=== PATIENT | male | born 1985 | race African-American/Black ===

== ENCOUNTER 2018-05-01 23:45 | Emergency (ER) | payer OTHER ==
--- NOTE | 2018-05-01 23:54 | PDOC ---
Attending Attestation - HPI HPI: 05/02/18 00:31 The patient is a 32 year old male, with a significant past medical history of anxiety, vertigo, and CVA (4 yrs ago), who presents to the emergency department via EMS with, seizure-like activity and headache. As per patient, he has had a headache all day long with increased dizziness. He called his aunt who witnessed him dropping his car keys then convulsing with his tongue out. The patient has not slept in 3 days due to increased familial stress. He has taken 6 of 25 mg Meclizine over the course of 12 hours for his dizziness today. It is unknown if he had any loss of consciousness. He denies any recent fevers or chills. He denies any recent nausea, vomit, diarrhea or constipation. He denies any recent chest pain or shortness of breath. He denies any recent dysuria, frequency, urgency or hematuria. Past surgical history: None reported. Social History: Occasional smoker. Denies EtOH use and recreational drug use. - Physicial Exam PE: 05/02/18 00:48 GENERAL: The patient is in no acute distress. HEAD: Normal with no signs of trauma. EYES: PERRLA, EOMI, sclera anicteric, conjunctiva clear. ENT: Ears normal, nares patent, oropharynx clear without exudates. Moist mucous membranes. NECK: Normal range of motion, supple without lymphadenopathy, JVD, or masses. LUNGS: Breath sounds equal, clear to auscultation bilaterally. No wheezes, and no crackles. HEART:Regular rate and rhythm, normal S1 and S2 without murmur, rub or gallop. ABDOMEN: Soft, nontender, normoactive bowel sounds. No guarding, no rebound. No masses palpable. EXTREMITIES: Normal range of motion, no edema. No clubbing or cyanosis. No erythema, or tenderness. NEUROLOGICAL: Cranial nerves II through XII grossly intact. Normal speech. No focal neurological deficits. MUSCULOSKELETAL: Back non-tender to palpation, no CVA tenderness SKIN: Warm, Dry, normal turgor, no rashes or lesions noted. <Reg Parra - Last Filed: 05/02/18 00:48> - Resident Resident Name: Maxwell Bustillos - ED Attending Attestation I have performed the following: I have examined & evaluated the patient, The case was reviewed & discussed with the resident, I agree w/resident's findings & plan, Exceptions are as noted - Medical Decision Making 05/02/18 01:03 EKG: NRS rate 96 bpm, axis nml, intervals nml, no st elevations or depression 05/02/18 01:20 Laboratory Tests 05/02/18 05/02/18 05/02/18 00:00 00:00 00:05 WBC 5.0 Hgb 14.4 Hct 43.7 Plt Count 257 Neutrophils % 42.6 L Lymphocytes % 42.5 H BUN 20 H Creatinine 1.3 Phencyclidine Screen Positive Upon my assessment, pt is awake and alert Oriented He states he took 6 x 25mg Meclizine tablets over 12 hours for vertigo Pt has not slept much in the past 3 days, in an effort to protect his father Apparently pt was in a car today, dropped a phone western felt hat blocker and was noted to have seizure like activity No bowel or bladder incontinence No post ictal period No prior history of seizure Upon arrival to the ER he was persistently speaking about his father and needing to get back to help his father 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 Will discharge to home Will ask pt to follow up with Neurology Return to the ER for any other concerns or complaints <Jayna Claudio - Last Filed: 05/02/18 01:49> Attestations - Attestations 05/02/18 00:31 Documentation prepared by Reg Parra, acting as medical liaison for Jayna Claudio MD. <Reg Parra - Last Filed: 05/02/18 00:48>
--- NOTE | 2018-05-02 00:20 | PDOC ---
History of Present Illness - General Stated Complaint: SEIZURE/AMS Time Seen by Provider: 05/01/18 23:53 - History of Present Illness Initial Comments: 05/02/18 00:14 Mr. Lee is a 32 yo male w/ pmh of vertigo and CVA 4 years ago (now residual deficits) BIBA who presents for evaluation of altered mental status. Per aunt who is with him he called her over to father's house (patient is visiting from [place]) when patient started experiencing significant headache and dizziness. Patient reports taking 6 meclizine (25mg, over 12 hours) for his dizziness. Patient proceeded to have a generalized tonic clonic episode after which he has been confused. Patient also reports he has not slept in 3 days as he is very concerned for his father and has been going through a lot of family issues. The patient denies chest pain and shortness of breath. Denies fever, chills, nausea, vomit, diarrhea and constipation. Denies dysuria, frequency, urgency and hematuria. Allergies: NKDA Past History - Past Medical History Allergies/Adverse Reactions: Allergies Allergy/AdvReac Type Severity Reaction Status Date / Time No Known Allergies Allergy Verified 05/02/18 00:49 Review of Systems - Review of Systems Comments:: 05/02/18 00:24 GENERAL/CONSTITUTIONAL: No fever or chills. No weakness. HEAD, EYES, EARS, NOSE AND THROAT: No change in vision. No ear pain or discharge. No sore throat. CARDIOVASCULAR: No chest pain or shortness of breath RESPIRATORY: No cough, wheezing, or hemoptysis. GASTROINTESTINAL: No nausea, vomiting, diarrhea or constipation. GENITOURINARY: No dysuria, frequency, or change in urination. MUSCULOSKELETAL: No joint or muscle swelling or pain. No neck or back pain. SKIN: No rash NEUROLOGIC: +Dizziness and headache as described with single tonic clonic episode earlier ENDOCRINE: No increased thirst. No abnormal weight change HEMATOLOGIC/LYMPHATIC: No anemia, easy bleeding, or history of blood clots. ALLERGIC/IMMUNOLOGIC: No hives or skin allergy. *Physical Exam - Physical Exam Comments: 05/02/18 00:24 GENERAL: Awake, alert, and fully oriented, in no acute distress HEAD: No signs of trauma, normocephalic, atraumatic EYES: PERRLA, EOMI, sclera anicteric, conjunctiva clear ENT: Auricles normal inspection, hearing grossly normal, nares patent, oropharynx clear without exudates. Moist mucosa NECK: Normal ROM, supple, no lymphadenopathy, JVD, or masses LUNGS: No distress, speaks full sentences, clear to auscultation bilaterally HEART: Regular rate and rhythm, normal S1 and S2, no murmurs, rubs or gallops, peripheral pulses normal and equal bilaterally. ABDOMEN: Soft, nontender, normoactive bowel sounds. No guarding, no rebound. No masses EXTREMITIES: Normal inspection, Normal range of motion, no edema. No clubbing or cyanosis. NEUROLOGICAL: Cranial nerves II through XII grossly intact. Normal speech, normal gait, no focal sensorimotor deficits SKIN: Warm, Dry, normal turgor, no rashes or lesions noted. ED Treatment Course - LABORATORY CBC & Chemistry Diagram: 05/02/18 00:00 05/02/18 00:00 Medical Decision Making - Medical Decision Making 05/02/18 00:48 Mr. Lee is a 32 yo male w/ pmh as described who presents for evaluation of ams / seizure as described. [place] Poison control contacted re: patient's ingestion of 6 meclizine; related that care is supportive only and there is nothing to be aware of / watch out for. Patient workup started with Head CT and labs. 05/02/18 01:[address] negative for acute process. Labs as below significant for positive PCP in urine drug screen. Suspect this is etiology of symptoms. Patient alert and oriented, reportedly feeling improved. EKG normal. No concern for acute process at this time. Discharging to home w/ instructions to f/u w/ primary care provider for further evaluation. Laboratory Results - last 24 hr 05/02/18 05/02/18 05/02/18 00:00 00:00 00:05 WBC 5.0 RBC 5.26 Hgb 14.4 Hct 43.7 MCV 83.1 MCH 27.3 MCHC 32.9 RDW 13.4 Plt Count 257 MPV 6.8 L Absolute Neuts (auto) 2.1 Neutrophils % 42.6 L Lymphocytes % 42.5 H Monocytes % 11.9 H Eosinophils % 2.1 Basophils % 0.9 Nucleated RBC % 0 Sodium 142 Potassium 4.0 Chloride 104 Carbon Dioxide 29 Anion Gap 9 BUN 20 H Creatinine 1.3 Creat Clearance w eGFR > 60 Random Glucose 81 Calcium 9.4 Total Bilirubin 0.2 AST 61 H ALT 64 Alkaline Phosphatase 73 Total Protein 7.4 Albumin 4.1 Salicylates <4.0 Opiates Screen Negative Methadone Screen Negative Acetaminophen <2.0 Barbiturate Screen Negative Phencyclidine Screen Positive Ur Amphetamines Screen Negative MDMA (Ecstasy) Screen Negative Benzodiazepines Screen Negative Cocaine Screen Negative U Marijuana (THC) Screen Negative *DC/Admit/Observation/Transfer Diagnosis at time of Disposition: Seizure - Discharge Dispostion Disposition: HOME - Referrals Referrals: Leigha Mills [Primary Care Provider] - Jesus Murillo MD [Staff Physician] - - Patient Instructions Printed Discharge Instructions: DI for Seizure (Not Epilepsy/Seizure Disorder) Additional Instructions: Please follow-up with Neurology in 1-2 days for further evaluation. Return to ER if any further altered mental status, fever, chills, or other concerning symptoms. - Post Discharge Activity
[2018-05-02] MEDS ORDERED: ACETAMINOPHEN 1000 MG/100 ML VIAL (NON FORMULARY) IVPB ONE (00:21)
[2018-05-02] MEDS ORDERED: SODIUM CHLORIDE 1,000 ML IV STA (00:21)
[2018-05-02] MEDS ORDERED: METOCLOPRAMIDE HCL INJECTION 10 MG/2 ML VIAL IVPB ONE (00:21)
[2018-05-02 00:26] LABS: BASO % 0.9 % (0-2.0); EOS % 2.1 % (0-4.5); HEMATOCRIT 43.7 % (35.4-49); HEMOGLOBIN 14.4 GM/dL (11.7-16.9); LYMPH % 42.5 % (8-40); MCH 27.3 pg (25.7-33.7); MCHC 32.9 g/dl (32.0-35.9); MEAN CELL VOLUME 83.1 fl (80-96); MEAN PLT VOLUME 6.8 fl (7.5-11.1); MONO % 11.9 % (3.8-10.2); NEUT % 42.6 % (42.8-82.8); PLATELET COUNT 257 K/MM3 (134-434); RBC 5.26 M/mm3 (4.00-5.60); RDW 13.4 % (11.9-15.9)
[2018-05-02 00:29] VITALS: TEMP 98.8; BMI 27.1
[2018-05-02] MEDS ORDERED: METOCLOPRAMIDE HCL INJECTION 10 MG/2 ML VIAL ONE (00:38)
[2018-05-02] MEDS ORDERED: ACETAMINOPHEN INJECTION 100 ML IVPB ONE ×2 (00:38)
[2018-05-02 00:46] LABS: ACETAMINOPHEN <2.0 ug/mL; ALBUMIN 4.1 g/dl (3.4-5.0); ALK PHOS 73 U/L (45-117); ANION GAP 9 (8-16); BILIRUBIN,TOTAL 0.2 mg/dL (0.2-1.0); BLOOD UREA NITROGEN 20 mg/dL (7-18); CALCIUM 9.4 mg/dL (8.5-10.1); CHLORIDE 104 mmol/L (98-107); CO2 29 mmol/L (21-32); CREATININE 1.3 mg/dL (0.7-1.3); GLUCOSE,RANDOM 81 mg/dL (74-106); SALICYLATE <4.0 mg/dL; SGOT/AST 61 U/L (15-37); SGPT/ALT 64 U/L (12-78); SODIUM 142 mmol/L (136-145); TOT PROT 7.4 g/dl (6.4-8.2)
[2018-05-02 01:08] LABS: COCAINE, UR NEGATIVE ng/ml (CUTOFF=300); METHADONE, UR NEGATIVE ng/ml (CUTOFF=300); OPIATES, URI NEGATIVE ng/ml (CUTOFF=300); URINE AMPHETAMINES NEGATIVE ng/ml (CUTOFF=500); URINE BARBITURATES NEGATIVE ng/ml (CUTOFF=200); URINE BENZODIAZEPINES NEGATIVE ng/ml (CUTOFF=200)
[2018-05-02 01:09] LABS: PHENCYCLIDINE,URINE POSITIVE ng/ml (CUTOFF=25)
[2018-05-02 01:59] VITALS: BP 122/88; PULSE 85
--- NOTE | 2018-05-02 14:42 | EKG ---
Test Reason : Blood Pressure : / mmHG Vent. Rate : 096 BPM Atrial Rate : 096 BPM P-R Int : 184 ms QRS Dur : 084 ms QT Int : 358 ms P-R-T Axes : 030 042 029 degrees QTc Int : 452 ms NORMAL SINUS RHYTHM NORMAL ECG NO PREVIOUS ECGS AVAILABLE Confirmed by Taj Beauchamp ([id number]) on 05/02/2018 2:42:10 PM Referred By: Confirmed By:Taj Beauchamp
== END 2018-05-02 01:59 | disposition home or self-care (01) ==
LOC: JER 23:45
PROC: 3E033GC Introduction of Other Therapeutic Substance into Peripheral Vein, Percutaneous Approach (ICD-10-PCS; principal; 2018-05-01)
PROC: 3E033NZ Introduction of Analgesics, Hypnotics, Sedatives into Peripheral Vein, Percutaneous Approach (ICD-10-PCS; 2018-05-01)
DX: R56.9 Unspecified convulsions (principal); R41.82 Altered mental status, unspecified; T45.0X5A Adverse effect of antiallergic and antiemetic drugs, initial encounter; Y92.89 Other specified places as the place of occurrence of the external cause
CPT/HCPCS: 36415; 70450-TC; 80053; 80307; 85025; 93005; 93010; 96374; 96375; 99283-25; J0131; J7030

== ENCOUNTER 2019-03-07 13:40 | Emergency (ER) | payer OTHER ==
[2019-03-07 14:02] VITALS: BP 128/71; PULSE 103; TEMP 98.6; BMI 27.3
--- NOTE | 2019-03-07 14:34 | PDOC ---
History of Present Illness - General Chief Complaint: Cold Symptoms Stated Complaint: VITRGO/ NOSE BLEED Time Seen by Provider: 03/07/19 14:09 History Source: Patient Exam Limitations: No Limitations - History of Present Illness Initial Comments: 03/07/19 15:54 Patient came with multiple complaints including runny nose and sinus congestion , states had intermittent bleeding that spontaneously resolved, and general malaise. Patient states has been under undue stress due to family members illness but states his sinus congestion and frontal headache pain has progressively worsened. Intermittent fevers the past few days. Has history of IVDA and chronic cocaine use but reports has been drug free for 7 years 03/07/19 15:56 Timing/Duration: reports: getting worse Severity: reports: mild, moderate Associated Symptoms: reports: cough, earache, facial pain, fever/chills, nasal congestion, nasal drainage Past History - Travel Traveled outside of the country in the last 30 days: No Close contact w/someone who was outside of country & ill: No - Past Medical History Allergies/Adverse Reactions: Allergies Allergy/AdvReac Type Severity Reaction Status Date / Time doxycycline AdvReac Severe Swelling Verified 03/07/19 13:57 Home Medications: Ambulatory Orders Amox-Tr/K Cl [Augmentin 875Mg Tablet] 1 tab PO BID #20 tablet 03/07/19 Asthma: Yes CVA: Yes COPD: No Hypercholesterolemia: Yes - Suicide/Smoking/Psychosocial Hx Smoking History: Current some day smoker Have you smoked in the past 12 months: Yes Information on smoking cessation initiated: Yes Hx Alcohol Use: No Drug/Substance Use Hx: No Review of Systems - Review of Systems Able to Perform ROS?: Yes Is the patient limited Divehi proficient: Yes Constitutional: Yes: Symptoms Reported, See HPI, Chills, Fever, Malaise HEENTM: Yes: Symptoms Reported, See HPI, Nose Pain, Nose Congestion, Nose Bleeding (intermittent), Difficulty Swallowing (with postnasal drainage) Respiratory: Yes: See HPI, Cough ABD/GI: No: Tarry Stools Integumentary: No: Symptoms Reported Neurological: Yes: See HPI, Headache (merrily frontal) All Other Systems: Reviewed and Negative *Physical Exam - Vital Signs Last Vital Signs Temp Pulse Resp BP Pulse Ox 98.6 F 103 H 20 128/71 97 03/07/19 13:58 03/07/19 13:58 03/07/19 13:58 03/07/19 13:58 03/07/19 13:58 - Physical Exam General Appearance: Yes: Nourished, Appropriately Dressed, Apparent Distress, Mild Distress HEENT: positive: STACIE, TMs Normal (congested but landmarks easily visualized), Nasal Congestion (with septal defect, no active bleeding noted in either nostril ), Rhinorrhea, Sinus Tenderness (full and tender frontal and ethmoid sinuses) Neck: positive: Supple, Lymphadenopathy (R), Lymphadenopathy (L) Respiratory/Chest: positive: Lungs Clear, Normal Breath Sounds Musculoskeletal: positive: Normal Inspection Extremity: positive: Normal Capillary Refill, Normal Inspection Integumentary: positive: Dry, Warm, Pale 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, Fully Oriented, Alert, Normal Mood/ Affect, Normal Response, Motor Strength 5 Progress Note - Progress Note Progress Note: Sinus infection, will treat with Augmentin and follow-up with PMD this week *DC/Admit/Observation/Transfer Diagnosis at time of Disposition: Sinusitis nasal Qualifiers: Sinusitis location: unspecified location Chronicity: acute Recurrence: not specified as recurrent Qualified Code(s): J01.90 - Acute sinusitis, unspecified - Discharge Dispostion Disposition: HOME Condition at time of disposition: Stable Decision to Admit order: No - Prescriptions Prescriptions: Amox-Tr/K Cl [Augmentin 875Mg Tablet] 1 tab PO BID #20 tablet - Referrals - Patient Instructions Printed Discharge Instructions: DI for Sinusitis Additional Instructions: Rest, drink lots of fluids: Teas, water, soups, Pedialyte Saltwater gargles Steamy showers/seem to face break up mucus Avoid contact with others until fevers and cough resolved Lots of handwashing and good hygiene Continue [id number] medications for symptomatic relief Tylenol or Motrin for fever and pain Augmentin as directed Followup with private physician in one to 2 days as needed Return to emergency department for worsened symptoms, fevers, dehydration - Post Discharge Activity Forms/Work/School Notes: Back to Work
== END 2019-03-07 14:39 | disposition home or self-care (01) ==
LOC: JERFT 13:40
DX: J01.90 Acute sinusitis, unspecified (principal)
CPT/HCPCS: 99281-25

== ENCOUNTER 2020-07-31 22:33 | Emergency (ER) | payer OTHER ==
[2020-07-31 22:40] VITALS: BP 135/85; PULSE 93; TEMP 98.4; BMI 27.1
--- OUTSIDE RECORDS SUMMARY | 2020-07-31 22:49 | XMS ---
:1985 Author Organization [facility] Care Team Providers Name Role Phone JOSE ENCINAS MD Unavailable Unavailable Erica ENCINAS MD Unavailable Unavailable Ese Bruce MD Unavailable Unavailable Ese Bruce MD Unavailable Unavailable Ese Bruce MD Unavailable Unavailable Ese Bruce MD Unavailable Unavailable Ese Bruce MD Unavailable Unavailable HHCCC Unavailable Unavailable Erica ENCINAS MD Unavailable Unavailable Erica ENCINAS MD Unavailable Unavailable GIA DONOVAN Unavailable Unavailable GIA DONOVAN Unavailable Unavailable FIDENCIO HANCOCK Unavailable Unavailable Erica ENCINAS MD Unavailable GIA DONOVAN Unavailable Unavailable GIA DONOVAN Unavailable MD ERMELINDA Unavailable Unavailable GIA DONOVAN Unavailable Unavailable GIA DONOVAN Unavailable Unavailable MD NED Unavailable Unavailable HHCCC Unavailable Unavailable Erica ENCINAS MD Unavailable Unavailable VANESSA MEDRANO Unavailable Unavailable Monica Way MD Unavailable Unavailable Monica Way MD Unavailable Unavailable Monica Way MD Unavailable Unavailable Monica Way MD Unavailable Unavailable Monica Way MD Unavailable Unavailable NONE Unavailable Unavailable GIA DONOVAN Unavailable Unavailable MOHAMED Unavailable Unavailable Erica ENCINAS MD Unavailable Unavailable Re-disclosure Warning The records that you are about to access may contain information from federally- assisted alcohol or drug abuse programs. If such information is present, then the following federally mandated warning applies: This information has been disclosed to you from records protected by federal confidentiality rules (42 CFR part 2). The federal rules prohibit you from making any further disclosure of this information unless further disclosure is expressly permitted by the written consent of the person to whom it pertains or as otherwise permitted by 42 CFR part 2. A general authorization for the release of medical or other information is NOT sufficient for this purpose. The Federal rules restrict any use of the information to criminally investigate or prosecute any alcohol or drug abuse patient.The records that you are about to access may contain highly sensitive health information, the redisclosure of which is protected by Article 27-F of the [facility] Public Health law. If you continue you may haveaccess to information: Regarding HIV / AIDS; Provided by facilities licensed or operated by the [facility] Office of Mental Health; or Provided by the [facility] Office for People With Developmental Disabilities. If such information is present, then the following [facility] mandated warning applies: This information has been disclosed to you from confidential records which are protected by state law. State law prohibits you from making any further disclosure of this information without the specific written consent of the person to whom it pertains, or as otherwise permitted by law. Any unauthorized further disclosure in violation of state law may result in a fine or chcf sentence or both. A general authorization for the release of medical or other information is NOT sufficient authorization for further disclosure. Allergies and Adverse Reactions Type Description Substance Reaction Status Data Source(s ) D penicillins penicillins [facility] No Known Allergies No Known Allergies [facility] D doxycycline doxycycline [facility] Encounters Encounter Providers Location Date Indications Data Source(s ) Outpatient Attender: HR9 07/24/2020 [facility] ([facility] 05:02:28 [facility] EDT [facility]) Patient admitted. Outpatient Attender: HR[address] 05/20/2020 12:19:25 PM [facility] Patient admitted. Inpatient Attender: ABDELRAHMAN PITTMAN-1D 05/02/2020 07:23:00 [facility] LUCEROANAdmitter: TAYEB PM EDT - 05/23/2020 [facility] 10:41:00 PM EDT Patient discharged. Outpatient ST 05/02/2020 02:00:00 PM EDT - [address] [place] [address] 08:29:00 PM EDT Patient discharged. Inpatient Attender: [facility] 04[facility]24/2020 09:41[facility] SE[facility] - 05/02/2020 [facility] ERMELINDA 08:23:00 PM EDT Patient discharged. [facility]patient [facility] 04/24/2020 05:22:00 PM EDT - [address] [place] [address] 09:48:00 PM EDT Patient discharged. Emergency Attender: ALL MILIAN XR-ED 04/16/2020 ER/A EVAL [facility] MDAttender: 04:52:34 PM EDT - [facility] 04/16/2020 [facility] Ce nter MDAttender: ALL 06:39:00 PM EDT AHARI MDAttender: ALL AHARI MDAttender: ALL AHARI MDAttender: ALL AHARI MDAttender: ALL AHARI MDReferrer: NONE NONE ER/A EVAL Patient discharged. Emergency [facility] 04/16/2020 04:52:34 [facility] PM EDT - 04/16/2020 [facility] 06:39:00 PM EDT [facility] Outpatient Attender: HR9 02/29/2020 10:02:09 [facility] ([facility] EDT Care [facility]) Patient admitted. [facility] CNR9 [facility] 02/29/2020 10:02:06 AM [facility] Patient admitted. Outpatient Attender: HR9 [facility] 01/07/2020 06:47:27 AM [facility]) Patient admitted. Emergency Attender: Fox MILIAN XR-ED 12/25/2019 SORE THROAT MA [address] MDReferrer: 07:33:[address] [facility] NONE NONE 12/25/2019 [facility] 09:29:00 PM EST SORE THROAT Patient discharged. Emergency [facility] 12/25/2019 [facility] 07:33:00 PM EST [facility] - 12/25/2019 [facility] 09:29:00 PM EST Outpatient 12/15/2019 [facility] 07:55:00 PM EST ([facility] ty Services) Outpatient 11/19/2019 [facility] 08:55:00 PM EST ([facility] ty Services) (NBillable) [facility] 08/16/2019 eCW3 ([facility] 12:00:00 AM EDT [facility] Health sing/Care A28 - 08/16/2019 Care) Management 12:00:00 AM EDT (NBillable) [facility] 08/16/2019 eCW3 ([facility] 12:00:00 AM EDT [facility] Health sing/Care A28 - 08/16/2019 Care) Management 12:00:00 AM EDT Emergency Attender: XR-ED 08/13/2019 DIZZCASTRO [facility] dax Bruce 09:42:36 AM EDT 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 Emergency Attender: Fox XR-ED 08/13/2019 03:06:[address] MDReferrer: AM EDT - 08/13/2019 [facility] NONE NONE 08:06:00 AM EDT [facility] SOB Patient discharged. (NBillable) [facility] 08/11/2019 eCW3 ([facility] Lab/Outreach/Nursing/Care Primary 12:00:00 AM [facility] EDT - Care) Clinic A28 08/11/2019 12:00:00 AM EDT Emergency Attender XR-ED 08/09/2019 ER A/ [place] [facility] : JOSE ENCINAS 03:14:03 AM ANXIETY - Arsh cor[facility] - [facility] er: JOSE 08/09/2019 KO 12:05:00 PM MDAttend EDT er: JOSE ENCINAS MDAttend er: JOSE ENCINAS MDAttend er: JOSE ENCINAS MDAttend er: JOSE ENCINAS MDAttend er: JOSE ENCINAS MDReferr er: NONE NONE ER A/ ANXIETY Patient discharged. A28- Therapy, [facility] 08/03/2019 eCW3 ([facility] [place] [facility] minutes Care Clinic 12:00:00 AM EDT Health C are) [facility] - 08/03/2019 12:00:00 AM EDT Outpatient [facility] 07/17/2019 eCW3 ([facility] 12:00:00 AM EDT Health C are) [facility] - 07/17/2019 12:00:00 AM EDT (NBillable) [facility] 07/16/2019 eCW3 ([facility] Lab/Outreach/Nurs Care Clinic 12:00:00 AM EDT H ealt Care) ing/Care [facility] - 07/16/2019 Management 12:00:00 AM EDT Emergency Attender: MAICOL XR-ED 07/12/2019 ER MA Kristy Bruce 07:58:12 PM EDT A/DIZZY Cabansterling driver MD - 07/12/2019 [facility] [address] [facility] 08:25:00 PM EDT ER A/DIZZY Patient discharged. Outpatient 06/14/2019 03:57:15 PM EDT [facility] ([facility]) Patient admitted. Outpatient 06/14/2019 03:57:12 PM EDT [facility] ([facility]) Patient admitted. Emergency Attender: MARCELA 06/04/2019 11:02:00 DIZZINES [facility]: MARCELA, PM EDT [facility] DIZZINESS (NBillable) [facility] 06/02/2019 eCW3 ([place] Lab/Outreach/Nursing/Care Primary 12:00:00 AM [facility] EDT - Care) Clinic [facility] 06/02/2019 12:00:00 AM EDT Emergency Attender 06/01/2019 VERTIGO, Garner : 01:58:00 AM DEHYDRATED [facility], ED Care [facility] itter: VANESSA MEDRANO VERTIGO, DEHYDRATED Emergency Attender: SANTI, 03/29/2019 06:47:00 [facility] EDT [facility] DIZZY Medications Medication Brand Start Product Dose Route Administrative Pharmacy [facility] Indications Reaction Description Data Name Date Form Instructions Instructions Source(s) Amoxicillin Amoxic ORAL complet Amoxic illin [facility] 500 MG Oral illin 2020 Capsu ed - 500 MG Vi ncents Capsule - 500 12:00: le ORAL Capsule H ospital MG 00 AM ORAL EDT Capsul e Meclizine Mecliz ORAL complet Meclizin e [facility] Hydrochlori ine 2019 Table ed HCl - 25 MG [facility] 25 MG HCl - 12:00: t ORAL Tablet H ospital Oral Tablet 25 MG 00 AM ORAL EDT Tablet Paroxetine Paxil ORAL complet Paxil - 20 [facility] 20 MG Oral - 20 2019 Table ed MG ORAL Kevin nts Tablet MG 12:00: t Tablet Hospital [Paxil] ORAL 00 AM Tablet EDT No Known drug 04/16/ complet [place] Medications or 2020 ed [facility] 05:27: an - tion 46 PM [facility] Amoxicillin Amoxic .0 active Amoxici llin eCW3 500 MG Oral illin 2020 {caps 500 MG ([facility] Capsule 500 MG 12:00: ule} [place] 00 AM Health EDT Care) Amoxicillin Amoxic 1.0 active Amoxici llin eCW3 500 MG Oral illin 2020 {caps 500 MG ([facility] Capsule 500 MG 12:00: ule} [place] 00 AM Health EDT Care) Amoxicillin Amoxic 1.0 active Amoxici llin eCW3 500 MG Oral illin 2020 {caps 500 MG ([facility] Capsule 500 MG 12:00: ule} [place] 00 AM Health EDT Care) Amoxicillin Amoxic 1.0 active Amoxici llin eCW3 500 MG Oral illin 2020 {caps 500 MG ([facility] Capsule 500 MG 12:00: ule} [place] 00 AM Health EDT Care) Amoxicillin Amoxic 1.0 active Amoxici llin eCW3 500 MG Oral illin 2020 {caps 500 MG ([facility] Capsule 500 MG 12:00: ule} [place] 00 AM Health EDT Care) Amoxicillin Amoxic 1.0 active Amoxici llin eCW3 500 MG Oral illin 2020 {caps 500 MG ([facility] Capsule 500 MG 12:00: ule} [place] 00 AM Health EDT Care) Amoxicillin Amoxic 1.0 active Amoxici llin eCW3 500 MG Oral illin 2020 {caps 500 MG ([facility] Capsule 500 MG 12:00: ule} [place] 00 AM Health EDT Care) Amoxicillin Amoxic .0 active Amoxici llin eCW3 500 MG Oral illin 2020 {caps 500 MG ([facility] Capsule 500 MG 12:00: ule} [place] 00 AM Health EDT Care) Amoxicillin Amoxic .0 active Amoxici llin eCW3 500 MG Oral illin 2020 {caps 500 MG ([facility] Capsule 500 MG 12:00: ule} [place] 00 AM Health EDT Care) Zithromax [id number] 12/24/ [place] 250 mg oral 2020 [facility] tablet 08:50: an - 00 PM [facility] Prednisone predni .0 Oral [place] 50 MG Oral SONE 2020 mg [facility] Tablet 50 mg 08:50: an - predniSONE oral 00 PM [place] 50 mg oral tablet [facility] traZODone [id number] 12/24/ [place] 2020 [facility] 07:44: an - 00 PM [facility] 12 HR Cetiri .0 active Cetirizine-P eCW3 cetirizine zine-P 2020 {tabl seudoephedr i ([facility] hydrochlori seudoe 12:00: et_as ne ER 5- 120 [place] de 5 MG / phedri 00 AM _need MG Health Pseudoephed ne ER EST ed} Care) rine 5-120 Hydrochlori MG de 120 MG Extended Release Oral Tablet Cetirizine- Pseudoephed rine ER 5-120 MG 12 HR Cetiri 1.0 suspend Cetirizine-P eCW3 cetirizine zine-P 2020 {tabl ed seudoephedr i ([facility] hydrochlori seudoe 12:00: et_as ne ER 5- 120 [place] de 5 MG / phedri 00 AM _need MG Health Pseudoephed ne ER EST ed} Care) rine 5-120 Hydrochlori MG de 120 MG Extended Release Oral Tablet Cetirizine- Pseudoephed rine ER 5-120 MG 12 HR Cetiri 1.0 suspend Cetirizine-P eCW3 cetirizine zine-P 2020 {tabl ed seudoephedr i ([facility] hydrochlori seudoe 12:00: et_as ne ER 5- 120 [place] de 5 MG / phedri 00 AM _need MG Health Pseudoephed ne ER EST ed} Care) rine 5-120 Hydrochlori MG de 120 MG Extended Release Oral Tablet Cetirizine- Pseudoephed rine ER 5-120 MG 12 HR Cetiri .0 active Cetirizine-P eCW3 cetirizine zine-P 2019 {tabl seudoephedr i ([facility] hydrochlori seudoe 12:00: et_as ne ER 5- 120 [place] de 5 MG / phedri 00 AM _need MG Health Pseudoephed ne ER EST ed} Care) rine 5-120 Hydrochlori MG de 120 MG Extended Release Oral Tablet Cetirizine- Pseudoephed rine ER 5-120 MG 12 HR Cetiri 1.0 suspend Cetirizine-P eCW3 cetirizine zine-P 2019 {tabl ed seudoephedr i ([facility] hydrochlori seudoe 12:00: et_as ne ER 5- 120 [place] de 5 MG / phedri 00 AM _need MG Health Pseudoephed ne ER EST ed} Care) rine 5-120 Hydrochlori MG de 120 MG Extended Release Oral Tablet Cetirizine- Pseudoephed rine ER 5-120 MG 12 HR Cetiri 1.0 suspend Cetirizine-P eCW3 cetirizine zine-P 2019 {tabl ed seudoephedr i ([facility] hydrochlori seudoe 12:00: et_as ne ER 5- 120 [place] de 5 MG / phedri 00 AM _need MG Health Pseudoephed ne ER EST ed} Care) rine 5-120 Hydrochlori MG de 120 MG Extended Release Oral Tablet Cetirizine- Pseudoephed rine ER 5-120 MG 12 HR Cetiri 1.0 suspend Cetirizine-P eCW3 cetirizine zine-P 2019 {tabl ed seudoephedr i ([facility] hydrochlori seudoe 12:00: et_as ne ER 5- 120 [place] de 5 MG / phedri 00 AM _need MG Health Pseudoephed ne ER EST ed} Care) rine 5-120 Hydrochlori MG de 120 MG Extended Release Oral Tablet Cetirizine- Pseudoephed rine ER 5-120 MG 12 HR Cetiri .0 active Cetirizine-P eCW3 cetirizine zine-P 2020 {tabl seudoephedr i ([facility] hydrochlori seudoe 12:00: et_as ne ER 5- 120 [place] de 5 MG / phedri 00 AM _need MG Health Pseudoephed ne ER EST ed} Care) rine 5-120 Hydrochlori MG de 120 MG Extended Release Oral Tablet Cetirizine- Pseudoephed rine ER 5-120 MG 12 HR Cetiri .0 suspend Cetirizine-P eCW3 cetirizine zine-P 2020 {tabl ed seudoephedr i ([facility] hydrochlori seudoe 12:00: et_as ne ER 5- 120 [place] de 5 MG / phedri 00 AM _need MG Health Pseudoephed ne ER EST ed} Care) rine 5-120 Hydrochlori MG de 120 MG Extended Release Oral Tablet Cetirizine- Pseudoephed rine ER 5-120 MG 12 HR Cetiri .0 suspend Cetirizine-P eCW3 cetirizine zine-P 2020 {tabl ed seudoephedr i ([facility] hydrochlori seudoe 12:00: et_as ne ER 5- 120 [place] de 5 MG / phedri 00 AM _need MG Health Pseudoephed ne ER EST ed} Care) rine 5-120 Hydrochlori MG de 120 MG Extended Release Oral Tablet Cetirizine- Pseudoephed rine ER 5-120 MG 12 HR Cetiri 1.0 active Cetirizine-P eCW3 cetirizine zine-P 2020 {tabl seudoephedr i ([facility] hydrochlori seudoe 12:00: et_as ne ER 5- 120 [place] de 5 MG / phedri 00 AM _need MG Health Pseudoephed ne ER EST ed} Care) rine 5-120 Hydrochlori MG de 120 MG Extended Release Oral Tablet Cetirizine- Pseudoephed rine ER 5-120 MG 12 HR Cetiri .0 suspend Cetirizine-P eCW3 cetirizine zine-P 2020 {tabl ed seudoephedr i (Arsh hydrochlori seudoe 12:00: et_as ne ER 5- 120 [place] de 5 MG / phedri 00 AM _need MG Health Pseudoephed ne ER EST ed} Care) rine 5-120 Hydrochlori MG de 120 MG Extended Release Oral Tablet Cetirizine- Pseudoephed rine ER 5-120 MG 12 HR Cetiri .0 suspend Cetirizine-P eCW3 cetirizine zine-P 2020 {tabl ed seudoephedr i (Arsh hydrochlori seudoe 12:00: et_as ne ER 5- 120 [place] de 5 MG / phedri 00 AM _need MG Health Pseudoephed ne ER EST ed} Care) rine 5-120 Hydrochlori MG de 120 MG Extended Release Oral Tablet Cetirizine- Pseudoephed rine ER 5-120 MG 12 HR Cetiri 1.0 suspend Cetirizine-P eCW3 cetirizine zine-P 2020 {tabl ed seudoephedr i (Arsh hydrochlori seudoe 12:00: et_as ne ER 5- 120 [place] de 5 MG / phedri 00 AM _need MG Health Pseudoephed ne ER EST ed} Care) rine 5-120 Hydrochlori MG de 120 MG Extended Release Oral Tablet Cetirizine- Pseudoephed rine ER 5-120 MG 12 HR Cetiri .0 active Cetirizine-P eCW3 cetirizine zine-P 2020 {tabl seudoephedr i ([facility] hydrochlori seudoe 12:00: et_as ne ER 5- 120 [place] de 5 MG / phedri 00 AM _need MG Health Pseudoephed ne ER EST ed} Care) rine 5-120 Hydrochlori MG de 120 MG Extended Release Oral Tablet Cetirizine- Pseudoephed rine ER 5-120 MG 12 HR Cetiri .0 active Cetirizine-P eCW3 cetirizine zine-P 2020 {tabl seudoephedr i ([facility] hydrochlori seudoe 12:00: et_as ne ER 5- 120 [place] de 5 MG / phedri 00 AM _need MG Health Pseudoephed ne ER EST ed} Care) rine 5-120 Hydrochlori MG de 120 MG Extended Release Oral Tablet Cetirizine- Pseudoephed rine ER 5-120 MG Naprosyn UNK .0 active Naprosyn 500 eCW3 500 MG 2019 {tabl MG ([facility] 12:00: et_wi [place] 00 AM th_fo Health EST od_or Care) _milk } 12 HR Cetiri .0 active Cetirizine-P eCW3 cetirizine zine-P 2019 {tabl seudoephedr i ([facility] hydrochlori seudoe 12:00: et_as ne ER 5- 120 [place] de 5 MG / phedri 00 AM _need MG Health Pseudoephed ne ER EST ed} Care) rine 5-120 Hydrochlori MG de 120 MG Extended Release Oral Tablet Cetirizine- Pseudoephed rine ER 5-120 MG 12 HR Cetiri .0 active Cetirizine-P eCW3 cetirizine zine-P 2020 {tabl seudoephedr i ([facility] hydrochlori seudoe 12:00: et_as ne ER 5- 120 [place] de 5 MG / phedri 00 AM _need MG Health Pseudoephed ne ER EST ed} Care) rine 5-120 Hydrochlori MG de 120 MG Extended Release Oral Tablet Cetirizine- Pseudoephed rine ER 5-120 MG 12 HR Cetiri .0 suspend Cetirizine-P eCW3 cetirizine zine-P 2020 {tabl ed seudoephedr i ([facility] hydrochlori seudoe 12:00: et_as ne ER 5- 120 [place] de 5 MG / phedri 00 AM _need MG Health Pseudoephed ne ER EST ed} Care) rine 5-120 Hydrochlori MG de 120 MG Extended Release Oral Tablet Cetirizine- Pseudoephed rine ER 5-120 MG dextrometho [id number] .0 Oral [place] rphan-guaif 2019 mL [facility] enesin 20 05:09: an - mg-200 11 AM [place] mg/20 mL [facility] liquid [facility] Albuterol albute 08/13/ Solution 2.5 Inhala [place] 0.83 MG/ML rol 2019 mg tion [facility] Inhalant 0.083% 07:10: an - Solution inhala 50 AM [place] albuterol tion [facility] 0.083% [facility] inhalation on Center solution Zithromax [id number] 08/13/ [place] 250 mg oral 2019 [facility] tablet 05:23: an - 13 AM [facility] dextrometho [id number] .0 Oral [place] [facility] 2018 mL [facility] enesin 20 05:09: an - mg-200 11 AM [facility] mg/20 mL [facility] Trazodone Trazod .0 suspend Trazodon e eCW3 Hydrochlori one 2018 {tabl ed HCl 50 MG (H udson de 50 MG HCl 50 12:00: et_at [place] Oral Tablet MG 00 AM _bedt Health Trazodone EDT ime_a Care) HCl 50 MG s_nee ded} Trazodone Trazod .0 suspend Trazodon e eCW3 Hydrochlori one 2018 {tabl ed HCl 50 MG (H udson de 50 MG HCl 50 12:00: et_at [place] Oral Tablet MG 00 AM _bedt Health Trazodone EDT ime_a Care) HCl 50 MG s_nee ded} Trazodone Trazod .0 suspend Trazodon e eCW3 Hydrochlori one 2018 {tabl ed HCl 50 MG (H udson de 50 MG HCl 50 12:00: et_at [place] Oral Tablet MG 00 AM _bedt Health Trazodone EDT ime_a Care) HCl 50 MG s_nee ded} Trazodone Trazod .0 suspend Trazodon e eCW3 Hydrochlori one 2018 {tabl ed HCl 50 MG (H udson de 50 MG HCl 50 12:00: et_at [place] Oral Tablet MG 00 AM _bedt Health Trazodone EDT ime_a Care) HCl 50 MG s_nee ded} Trazodone Trazod .0 suspend Trazodon e eCW3 Hydrochlori one 2018 {tabl ed HCl 50 MG (H udson de 50 MG HCl 50 12:00: et_at [place] Oral Tablet MG 00 AM _bedt Health Trazodone EDT ime_a Care) HCl 50 MG s_nee ded} Trazodone Trazod .0 suspend Trazodon e eCW3 Hydrochlori one 2018 {tabl ed HCl 50 MG (H udson de 50 MG HCl 50 12:00: et_at [place] Oral Tablet MG 00 AM _bedt Health Trazodone EDT ime_a Care) HCl 50 MG s_nee ded} Trazodone Trazod .0 suspend Trazodon e eCW3 Hydrochlori one 2018 {tabl ed HCl 50 MG (H udson de 50 MG HCl 50 12:00: et_at [place] Oral Tablet MG 00 AM _bedt Health Trazodone EDT ime_a Care) HCl 50 MG s_nee ded} Trazodone Trazod .0 suspend Trazodon e eCW3 Hydrochlori one 2018 {tabl ed HCl 50 MG (H udson de 50 MG HCl 50 12:00: et_at [place] Oral Tablet MG 00 AM _bedt Health Trazodone EDT ime_a Care) HCl 50 MG s_nee ded} Trazodone Trazod .0 suspend Trazodon e eCW3 Hydrochlori one 2018 {tabl ed HCl 50 MG (H udson de 50 MG HCl 50 12:00: et_at [place] Oral Tablet MG 00 AM _bedt Health Trazodone EDT ime_a Care) HCl 50 MG s_nee ded} Trazodone Trazod .0 suspend Trazodon e eCW3 Hydrochlori one 2018 {tabl ed HCl 50 MG (H udson de 50 MG HCl 50 12:00: et_at [place] Oral Tablet MG 00 AM _bedt Health Trazodone EDT ime_a Care) HCl 50 MG s_nee ded} Trazodone Trazod .0 suspend Trazodon e eCW3 Hydrochlori one 2018 {tabl ed HCl 50 MG (H udson de 50 MG HCl 50 12:00: et_at [place] Oral Tablet MG 00 AM _bedt Health Trazodone EDT ime_a Care) HCl 50 MG s_nee ded} Trazodone Trazod .0 suspend Trazodon e eCW3 Hydrochlori one 2018 {tabl ed HCl 50 MG (H udson de 50 MG HCl 50 12:00: et_at [place] Oral Tablet MG 00 AM _bedt Health Trazodone EDT ime_a Care) HCl 50 MG s_nee ded} Trazodone Trazod .0 suspend Trazodon e eCW3 Hydrochlori one 2018 {tabl ed HCl 50 MG (H udson de 50 MG HCl 50 12:00: et_at [place] Oral Tablet MG 00 AM _bedt Health Trazodone EDT ime_a Care) HCl 50 MG s_nee ded} Trazodone Trazod .0 suspend Trazodon e eCW3 Hydrochlori one 2018 {tabl ed HCl 50 MG (H udson de 50 MG HCl 50 12:00: et_at [place] Oral Tablet MG 00 AM _bedt Health Trazodone EDT ime_a Care) HCl 50 MG s_nee ded} Trazodone Trazod .0 suspend Trazodon e eCW3 Hydrochlori one 2018 {tabl ed HCl 50 MG (H udson de 50 MG HCl 50 12:00: et_at [place] Oral Tablet MG 00 AM _bedt Health Trazodone EDT ime_a Care) HCl 50 MG s_nee ded} Trazodone Trazod .0 suspend Trazodon e eCW3 Hydrochlori one 2018 {tabl ed HCl 50 MG (H udson de 50 MG HCl 50 12:00: et_at [place] Oral Tablet MG 00 AM _bedt Health Trazodone EDT ime_a Care) HCl 50 MG s_nee ded} Trazodone Trazod .0 suspend Trazodon e eCW3 Hydrochlori one 2019 {tabl ed HCl 50 MG (H udson de 50 MG HCl 50 12:00: et_at [place] Oral Tablet MG 00 AM _bedt Health Trazodone EDT ime_a Care) HCl 50 MG s_nee ded} Trazodone Trazod .0 suspend Trazodon e eCW3 Hydrochlori one 2019 {tabl ed HCl 50 MG (H udson de 50 MG HCl 50 12:00: et_at [place] Oral Tablet MG 00 AM _bedt Health Trazodone EDT ime_a Care) HCl 50 MG s_nee ded} Trazodone Trazod .0 suspend Trazodon e eCW3 Hydrochlori one 2019 {tabl ed HCl 50 MG (H udson de 50 MG HCl 50 12:00: et_at [place] Oral Tablet MG 00 AM _bedt Health Trazodone EDT ime_a Care) HCl 50 MG s_nee ded} Insurance Providers Payer name Policy type Policy ID Covered Covered libertarian's Policy P jayla / Coverage libertarian ID relationship to Vel[employer] Inf ormation type velazquez MVP [place]ICA[place] [id number] SP [id number] HMO MVP MEDICAID [id number] SP [id number] Y HMO SELF PAY INSURANCE SELF PAY 000 Self [id number] MEDICAID INP [id number] Self [id number] Y PSYCH [facility] [id number] Self [id number] 100 HEALTHPLAN PENDING WC/NF [id number] SP [id number] ONLY SELF PAY [id number] Self [id number] MEDICAID INP [id number] Self [id number] Y PSYCH [facility] MVP [id number] Self [id number] 100 HEALTHPLAN [facility] [id number] MEDICAID JOSE [id number] MEDICAID JOSE [id number] MV [facility] [id number] MEDICAID JOSE [id number] MEDICAID JOSE [id number] MEDICAID JOSE [id number] [facility] [id number] MV [employer] [facility] [id number] SELF PAY SP SELF PAY SP [facility] [facility] [id number] [employer] [facility] [id number] [employer] [facility] [id number] [employer] [facility] [id number] MVP HEALTHPLAN [facility] [id number] [employer] [id number] 1 [id number] flatev [place] Medicaid [id number] [facility] [employer] [facility] [id number] Problems, Conditions, and Diagnoses Code Display Name Description Problem Type Effective Data Sour ce(s) Dates I10 Essential Essential Problem 02/14/2020 eCW3 ([facility] hypertension hypertension 12:00:[address] [facility] EDT Care) F43.10 PTSD PTSD Problem 08/03/2019 eCW3 ([facility] (post-traumatic (post-traumatic 12:00:00 AM [facility] stress disorder) stress disorder) EDT Ca re) F43.10 PTSD PTSD Problem 08/03/2019 eCW3 ([facility] (post-traumatic (post-traumatic 12:00:00 AM [facility] stress disorder) stress disorder) EDT Ca re) J01.10 Acute Acute Problem 07/18/2019 eCW3 ([facility] non-recurrent non-recurrent 12:00:00 AM [facility] frontal sinusitis frontal sinusitis EDT Care) R73.03 Prediabetes Prediabetes Problem 07/18/2019 eCW3 ([facility]aban 12:00:00 AM [facility] EDT Care) G47.9 Sleep disorder Sleep disorder Problem 07/17/2019 eCW3 ( [place] 12:00:00 AM [facility] EDT Care) G47.9 Sleep disorder Sleep disorder Problem 07/17/2019 eCW3 ( [place] 12:00:00 AM [facility] EDT Care) R42 Dizziness and Dizziness and Diagnosis 08/13/2019 [facility] giddiness giddiness 09:42:36 [facility] J18.9 Pneumonia, Pneumonia, Diagnosis 08/13/2019 [place] [facility] unspecified unspecified 03:06:12 AM - [facility] [place] [facility] organism organism EDT [facility] [place] r R06.02 Shortness of Shortness of Diagnosis 08/09/2019 [facility] erian breath breath 03:14:03 AM - [place] EDT [facility] r Z88.8 Allergy status to ALLERGY STATUS TO Diagnosis 06/04/2019 [place] other drugs, OTH 11:02:00 PM [facility] medicaments and DRUG/MEDS/BIOL EDT [facility] biological SUBST STATUS substances status Z86.73 Personal history PRSNL HX OF TIA Diagnosis 06/04/2019 [place] of transient (TIA), AND CEREB 11:02:00 PM [facility] ischemic attack INFRC W/O RESID EDT [facility] (TIA), and DEFICITS cerebral infarction without residual deficits F41.9 Anxiety disorder, ANXIETY DISORDER, Diagnosis 06/04/2019 [place] unspecified UNSPECIFIED 11:02:00 PM [facility] EDT [facility] on J45.909 Unspecified UNSPECIFIED Diagnosis 06/04/2019 [place] asthma, ASTHMA, 11:02:00 PM [facility] uncomplicated UNCOMPLICATED EDT [facility] poration G47.10 Hypersomnia, HYPERSOMNIA, Diagnosis 06/04/2019 [facility] r unspecified UNSPECIFIED 11:02:00 PM [facility] EDT [facility] on R42 Dizziness and DIZZINESS AND Diagnosis 06/04/2019 [facility] giddiness GIDDINESS 11:02:00 PM [facility] EDT [facility] on Results ID Date Data Source [id number] 12/25/2019 08:35:09 PM EST [facility] [id number] Hospital Center Name Value Range Interpretation Code Description Data Latrice rce(s) Supporting Document(s ) RADRPT <table [place] [facility] border="1" - [facility] width="95%"><col Hospital Cent er group><col width="25%"></co l><col width="25%"></co l><col width="25%"></co l><col width="25%"></co l></colgroup><tb nadia><tr><td>Exam Date Time</td><td>Pro cedure</td><td>P erforming Provider</td><td >Status</td></tr ><tr><td>12/25/19 8:35 PM</td><td>XR Chest 2 Views</td><td>AMNA SIMONA BENAVIDES; </td><td>Auth (Verified)</td>< /tr></tbody></ta ble><paragraph>N otes:</paragraph ><paragraph>(XR Chest 2 Views) Reason For Exam: Fever</paragraph ><paragraph><con tent>Report</con tent>
<mekhi nt ID="[id number]">PA and lateral chest.

Clinical History: Fever. Sore throat

PA and lateral of the chest was performed. The radiograph is compared
to prior radiograph dated 08/13/2019 . Radiograph reveals the cardiac
silh ouette to be within normal limits in size. Lung parenchyma is
without evidence of infiltrate or consolidations. The soft tissues and
osseous structures are unremarkable.

Impressio n :
1. No acute infiltrates seen.</content>< br/><content> Final
Dictat ed By: LUC JAMES MD 12.25.2019 9:50 pm

Rele ased By: (Electronic Signature)
S igned: LUC JAMES MD 12.25.2019 9:50 pm

Thompson scribed: 12.25.2019 9:52 pm</content></pa ragraph> ID Date Data Source [id number] 12/25/2019 07:45:00 PM EST [facility] [id number] Hospital Center Name Value Range Interpretation Description Data Source(s ) Supporting Code Document(s ) Strep Neg Normal (applies to [place] [facility] dodie Screen (12/25/19 non-numeric - [facility] 7:45 PM) results) Hospital Center ID Date Data Source [id number] 12/25/2019 07:45:00 PM EST [facility] [id number] [facility] Name Value Range Interpretation Description Data Source(s ) Supporting Code Document(s ) Influ A Neg [place] [facility] by PCR *NA*( [facility] 7:45 Hospital Center PM) Influ B Neg [place] [facility] by PCR *NA*( [facility] 7:45 Hospital Center PM) RSV by [facility] PCR *NA*( [facility] 7:45 Hospital Center PM) ID Date Data Source [id number] 08/13/2019 04:11:08 AM EDT [facility] [id number] [facility] Name Value Range Interpretation Code Description Data Latrice rce(s) Supporting Document(s ) RADRPT <table [place] [facility] border="1" - [facility] width="95%"><col Hospital Cent er group><col width="25%"></co l><col width="25%"></co l><col width="25%"></co l><col width="25%"></co l></colgroup><tb nadia><tr><td>Exam Date Time</td><td>Pro cedure</td><td>P erforming Provider</td><td >Status</td></tr ><tr><td> 9 4:17 AM</td><td>XR Chest 2 Views</td><td>ZARA FLORES; </td><td>Auth (Verified)</td>< /tr></tbody></ta ble><paragraph>N otes:</paragraph ><paragraph>(XR Chest 2 Views) Reason For Exam: Fever</paragraph ><paragraph><con tent>Report</con tent>
<[facility] nt ID="[id number]">. EXAMINATION: Frontal and lateral views of the chest were obtained.
HISTORY: Shortness of breath
TOÑA RISON: 08/09/2019.

There is no infiltrate or pleural effusion. The cardiomediastina l
silhouette is within normal limits.

IMPRES WYATT:
No focal consolidation. </content>
< content> Final
Dictat ed By: MAYKEL FAY MD 08.13.2019 8:24 am

Rele ased By: (Electronic Signature)
S igned: MAYKEL FAY MD 08.13.2019 8:24 am

Thompson scribed: 08.13.2019 8:26 am </content></para graph> ID Date Data Source [id number] 08/13/2019 03:55:00 AM EDT [facility] [id number] [facility] Center Name Value Range Interpretation Description Data Source(s ) Supporting Code Document(s ) Influ B [facility] by PCR *NA*(07/21 [facility] 03/07 3:55 Hospital Center AM) RSV by [facility] PCR *NA*(07/21 [facility] 03/07 3:55 Hospital Center AM) Influ A [facility] by PCR *NA*(07/21 [facility] 03/07 3:55 [facility] [place] AM) Procedure Social History Code Duration Value Status Description Data Source(s ) Smoking 03/13/2020 Current completed Current Smoker eCW3 ([place] 12:00:00 AM Smoker [facility]) Smoking 03/13/2020 Current completed Current Smoker eCW3 ([place] 12:00:00 AM Smoker [facility]) Smoking 03/13/2020 Current completed Current Smoker eCW3 ([place] 12:00:00 AM Smoker [facility]) Smoking 03/13/2020 Current completed Current Smoker eCW3 ([place] 12:00:00 AM Smoker [facility]) Smoking 03/13/2020 Current completed Current Smoker eCW3 ([place] 12:00:00 AM Smoker [facility]) Smoking 03/13/2020 Current completed Current Smoker eCW3 ([place] 12:00:00 AM Smoker [facility]) Smoking 03/13/2020 Current completed Current Smoker eCW3 ([place] 12:00:00 AM Smoker [facility]) Smoking 03/13/2020 Current completed Current Smoker eCW3 ([place] 12:00:00 AM Smoker [facility]) Smoking 03/13/2020 Current completed Current Smoker eCW3 ([place] 12:00:00 AM Smoker [facility]) Smoking 02/16/2020 Current completed Current Smoker eCW3 ([place] 12:00:00 AM Smoker [facility]) Smoking 02/16/2020 Current completed Current Smoker eCW3 ([place] 12:00:00 AM Smoker [facility]) Tobacco smoking 12/25/2019 Light completed Light tobacco [place] [facility] - consumption 07:42:45 PM tobacco smoker (finding) [facility] unknown (finding) EST [facility] Tobacco smoking 12/25/2019 Light completed Light tobacco [place] [facility] - consumption 07:42:45 PM tobacco smoker (finding) [facility] unknown (finding) EST smoker [facility] (finding) Smoking 12/25/2019 Current completed Current Smoker eCW3 ([place] 12:00:00 AM Smoker [facility]) Smoking 12/25/2019 Current completed Current Smoker eCW3 ([place] 12:00:00 AM Smoker [facility]) Smoking 12/25/2019 Current completed Current Smoker eCW3 ([place] 12:00:00 AM Smoker [facility]) Smoking 12/25/2019 Current completed Current Smoker eCW3 ([place] 12:00:00 AM Smoker [facility]) Smoking 12/25/2019 Current completed Current Smoker eCW3 ([place] 12:00:00 AM Smoker [facility]) Smoking 12/25/2019 Current completed Current Smoker eCW3 ([place] 12:00:00 AM Smoker [facility]) Smoking 12/25/2019 Current completed Current Smoker eCW3 ([place] 12:00:00 AM Smoker [facility]) Smoking 12/20/2019 Current completed Current Smoker eCW3 ([place] 12:00:00 AM Smoker [facility]) Vital Signs ID Date Data Source UNK Name Value Range Interpretation Description Data Sour ce(s) Code Diastolic blood 71 mmHg 71 mmHg [facility] Systolic blood 116 mmHg 116 mmHg [facility] Respiratory rate 18 bpm 18 bpm [facility] Heart rate 77 bpm 77 bpm [facility] Body [facility] 97.5 97[facility] Diastolic blood 74 mmHg 74 mmHg [facility] Systolic blood 112 mmHg 112 mmHg [facility] Respiratory rate 18 bpm 18 bpm [facility] Heart rate 78 bpm 78 bpm [facility] Body temperature 97.5 97.5 [facility] Diastolic blood 71 mmHg 71 mmHg [facility] Systolic blood 114 mmHg 114 mmHg [facility] Respiratory rate 18 bpm 18 bpm [facility] Heart rate 78 bpm 78 bpm [facility] Body temperature 97.4 97.4 [facility] Diastolic blood 69 mmHg 69 mmHg [facility] Systolic blood 117 mmHg 117 mmHg [facility] Respiratory rate 18 bpm 18 bpm [facility] Heart rate 77 bpm 77 bpm [facility] Body temperature 97.1 97.1 [facility] Body temperature 98.1 98.1 [facility] Diastolic blood 62 mmHg 62 mmHg [facility] Systolic blood 112 mmHg 112 mmHg [facility] Respiratory rate 18 bpm 18 bpm [facility] Heart rate 82 bpm 82 bpm [facility] Body temperature 97.9 97.9 [facility] Body temperature 97.9 97.9 [facility] Diastolic blood 69 mmHg 69 mmHg [facility] Systolic blood 114 mmHg 114 mmHg [facility] Respiratory rate 18 bpm 18 bpm [facility] Heart rate 78 bpm 78 bpm [facility] Body temperature 97.9 97.9 [facility] Diastolic blood 83 mmHg 83 mmHg [facility] Systolic blood 138 mmHg 138 mmHg [facility] Respiratory rate 18 bpm 18 bpm [facility] Heart rate 70 bpm 70 bpm [facility] Body temperature 97.7 97.7 [facility] Diastolic blood 77 mmHg 77 mmHg [facility] Systolic blood 129 mmHg 129 mmHg [facility] Respiratory rate 18 bpm 18 bpm [facility] Heart rate 79 bpm 79 bpm [facility] Body temperature 97.7 97.7 [facility] Diastolic blood 74 mmHg 74 mmHg [facility] Systolic blood 125 mmHg 125 mmHg [facility] Respiratory rate 18 bpm 18 bpm [facility] Heart rate 70 bpm 70 bpm [facility] Body temperature 97.2 97.2 [facility] Diastolic blood 69 mmHg 69 mmHg [facility] Systolic blood 115 mmHg 115 mmHg [facility] Respiratory rate 18 bpm 18 bpm [facility] Heart rate 74 bpm 74 bpm [facility] Body temperature 97.5 97.5 [facility] Body temperature 97.4 97.4 [employer] Diastolic blood 66 mmHg 66 mmHg [facility] Systolic blood 107 mmHg 107 mmHg [facility] Respiratory rate 18 bpm 18 bpm [facility] Heart rate 77 bpm 77 bpm [facility] Body temperature 97.0 97.0 [employer] Diastolic blood 69 mmHg 69 mmHg [facility] Systolic blood 135 mmHg 135 mmHg [facility] Respiratory rate 18 bpm 18 bpm [facility] Heart rate 79 bpm 79 bpm [facility] Body temperature 97.4 97.4 [employer] Diastolic blood 48 mmHg 48 mmHg [facility] Systolic blood 100 mmHg 100 mmHg [facility] Respiratory rate 18 bpm 18 bpm [facility] Heart rate 79 bpm 79 bpm [facility] Body temperature 97.1 97.1 [facility] Body temperature 97.5 97.5 [facility] Diastolic blood 83 mmHg 83 mmHg [facility] Systolic blood 120 mmHg 120 mmHg [facility] Respiratory rate 18 bpm 18 bpm [facility] Heart rate 83 bpm 83 bpm [facility] Diastolic blood 81 mmHg 81 mmHg [facility] Systolic blood 140 mmHg 140 mmHg [facility] Respiratory rate 18 bpm 18 bpm [facility] Heart rate 82 bpm 82 bpm [facility] Diastolic blood 76 mmHg 76 mmHg [facility] Systolic blood 119 mmHg 119 mmHg [facility] Respiratory rate 18 bpm 18 bpm [facility] Heart rate 81 bpm 81 bpm [facility] Body temperature 97.3 97.3 [facility] Body weight 190 lbs 190 lbs [facility] Diastolic blood 69 mmHg 69 mmHg [facility] Systolic blood 114 mmHg 114 mmHg [facility] Deprecated 98 % 98 % [facility] saturation in Capillary blood by [employer] Respiratory rate 18 bpm 18 bpm [facility] Heart rate 83 bpm 83 bpm [facility] Body temperature 96.9 96.9 [facility] Respiratory rate 18 bpm 18 bpm [facility] Diastolic blood 85 mmHg 85 mmHg [facility] Systolic blood 135 mmHg 135 mmHg [facility] Heart rate 83 bpm 83 bpm [facility] Diastolic blood 83 mmHg 83 mmHg [facility] Systolic blood 126 mmHg 126 mmHg [facility] Respiratory rate 18 bpm 18 bpm [facility] Heart rate 86 bpm 86 bpm [facility] Diastolic blood 70 mmHg 70 mmHg [facility] Systolic blood 118 mmHg 118 mmHg [facility] Respiratory rate 18 bpm 18 bpm [facility] Heart rate 77 bpm 77 bpm [facility] Body temperature 97.0 97.0 [facility] Diastolic blood 86 mmHg 86 mmHg [facility] Systolic blood 127 mmHg 127 mmHg [facility] Heart rate 88 bpm 88 bpm [facility] Diastolic blood 68 mmHg 68 mmHg [facility] Systolic blood 118 mmHg 118 mmHg [facility] Respiratory rate 18 bpm 18 bpm [facility] Heart rate 82 bpm 82 bpm [facility] Diastolic blood 86 mmHg 86 mmHg [facility] Systolic blood 153 mmHg 153 mmHg [facility] Respiratory rate 18 bpm 18 bpm [facility] Heart rate 91 bpm 91 bpm [facility] Body temperature 98.3 98.3 [facility] Respiratory rate 18 bpm 18 bpm [facility] Diastolic blood 75 mmHg 75 mmHg [facility] Systolic blood 117 mmHg 117 mmHg [facility] Heart rate 87 bpm 87 bpm [facility] Diastolic blood 88 mmHg 88 mmHg [facility] Systolic blood 147 mmHg 147 mmHg [facility] Heart rate 75 bpm 75 bpm [facility] Diastolic blood 87 mmHg 87 mmHg [facility] Systolic blood 147 mmHg 147 mmHg [facility] Respiratory rate 20 bpm 20 bpm [facility] Heart rate 70 bpm 70 bpm [facility] Body temperature 96.3 96.3 [facility] Diastolic blood 85 mmHg 85 mmHg [facility] Systolic blood 148 mmHg 148 mmHg [facility] Heart rate 82 bpm 82 bpm [facility] Diastolic blood 76 mmHg 76 mmHg [facility] Systolic blood 131 mmHg 131 mmHg [facility] Respiratory rate 18 bpm 18 bpm [facility] Heart rate 70 bpm 70 bpm [facility] Body temperature 97.8 97.8 [facility] Mean blood 89 mm[Hg] 89 mm[Hg] [place] [facility] pressure - [place] y [facility] Diastolic blood 73 mm[Hg] Normal (applies to 73 mm[Hg] N [place] [facility] pressure non-numeric - [place] results) [facility] Systolic blood 122 mm[Hg] Normal (applies to 122 mm[Hg] [place] [facility] pressure non-numeric - [place] results) [facility] r Respiratory rate 18 br/min Normal (applies to 18 br/min [place] [facility] non-numeric - [place] results) [facility] Peripheral Pulse 103 bpm Above high normal 103 bpm [place] [facility] Rate - [facility] Body height 186.000 cm 186.000 cm [facility] Body weight 93.000 kg 93.000 kg [facility] Measured [facility] Body surface 2.19 2.19 [place] [facility] Body weight 93 kg 93 kg [place] [facility] Measured [facility] Body height 186 cm 186 cm [facility] Respiratory rate 20 br/min Normal (applies to 20 br/min [place] [facility] non-numeric - [place] results) [facility] Peripheral Pulse 142 bpm Above high normal 142 bpm [place] [facility] Rate [facility] Mean blood 79 mm[Hg] 79 mm[Hg] [place] [facility] pressure [facility] Diastolic blood 66 mm[Hg] Normal (applies to 66 mm[Hg] [place] [facility] pressure non-numeric - [place] results) [facility] Systolic blood 104 mm[Hg] Normal (applies to 104 mm[Hg] [place] [facility] pressure non-numeric - [place] results) [facility] Respiratory rate 18 br/min Normal (applies to 18 br/min [place] [facility] non-numeric - [place] results) [facility] Peripheral Pulse 78 bpm Normal (applies to 78 bpm [place] [facility] Rate non-numeric - [place] results) [facility] Body temperature 98.4 [degF] Normal (applies to 98.4 [degF ] [place] [facility] non-numeric - [place] results) [facility] Body height 182.000 cm 182.000 cm [facility] Body weight 90.000 kg 90.000 kg [facility] Measured [facility] Body surface 2.13 2.13 [facility] Body weight 90 kg 90 kg [place] [facility] Body height 182 cm 182 cm [facility] r Mean blood 113 mm[Hg] 113 mm[Hg] [place] [facility] pressure [facility] r Diastolic blood 92 mm[Hg] Above high normal 92 mm[Hg] [place] [facility] pressure [facility] r Systolic blood 156 mm[Hg] Above high normal 156 mm[Hg] [place] [facility] 18 br/min Normal (applies to 18 br/min [place] [facility] non-numeric - [place] results) [facility] Peripheral Pulse 88 bpm Normal (applies to 88 bpm [place] [facility] Rate non-numeric - [place] results) [facility] Body temperature 98.1 [degF] 98.1 [degF] [facility] r Body height 182.000 cm 182.000 cm [facility] r Body weight 95.000 kg 95.000 kg [place] [facility] Measured [facility] r Body surface 2.19 2.19 [facility] r Body weight 95 kg 95 kg [facility] Body height 182 cm 182 cm [facility] r Mean blood 82 mm[Hg] 82 mm[Hg] [place] [facility] Diastolic blood 67 mm[Hg] Normal (applies to 67 mm[Hg] [place] [facility] pressure non-numeric - [place] results) [facility] Systolic blood 113 mm[Hg] Normal (applies to 113 mm[Hg] [place] [facility] pressure non-numeric - [place] results) [facility] Respiratory rate 19 br/min Normal (applies to 19 br/min [place] [facility] non-numeric - [place] results) [facility] Peripheral Pulse 84 bpm Normal (applies to 84 bpm [place] [facility] Rate non-numeric - [place] results) [facility] Body temperature 97.7 [degF] 97.7 [degF] [place] [facility] - Temporal - [facility] y artery [facility] Mean blood 82 mm[Hg] 82 mm[Hg] [place] [facility] pressure - [facility] Diastolic blood 63 mm[Hg] Normal (applies to 63 mm[Hg] [place] [facility] pressure non-numeric - [place] results) [facility] Systolic blood 121 mm[Hg] Normal (applies to 121 mm[Hg] [place] [facility] pressure non-numeric - [place] results) [facility] Respiratory rate 20 br/min Normal (applies to 20 br/min [place] [facility] non-numeric - [place] results) [facility] Peripheral Pulse 87 bpm Normal (applies to 87 bpm [place] [facility] Rate non-numeric - [place] results) [facility] Body temperature 98.2 [degF] Normal (applies to 98.2 [degF ] [place] [facility] non-numeric - [place] results) [facility] Mean blood 83 mm[Hg] 83 mm[Hg] [place] [facility] pressure [facility] Diastolic blood 59 mm[Hg] Below low normal 59 mm[Hg] [place] [facility] pressure - [facility] Systolic blood 131 mm[Hg] Normal (applies to 131 mm[Hg] [place] [facility] pressure non-numeric - [place] results) [facility] Respiratory rate 18 br/min Normal (applies to 18 br/min [place] [facility] non[place]numeric - [place] results) [facility] Peripheral Pulse 98 bpm Normal (applies to 98 bpm [place] [facility] Rate non-numeric - [place] results) [facility] Body weight 91.000 kg 91.000 kg [place] [facility] Measured - [facility] Mean blood 104 mm[Hg] 104 mm[Hg] [place] [facility] pressure [facility] Diastolic blood 82 mm[Hg] Normal (applies to 82 mm[Hg] [place] [facility] pressure non-numeric - [place] results) [facility] Systolic blood 148 mm[Hg] Above high normal 148 mm[Hg] [place] [facility] pressure [facility] r Respiratory rate 20 br/min Normal (applies to 20 br/min [place] [facility] non-numeric - [place] [facility] results) [facility] Peripheral Pulse 96 bpm Normal (applies to 96 bpm [place] [facility] Rate non-numeric - [place] [facility] results) [facility] r Body temperature 99.7 [degF] 99.7 [degF] [place] [facility] - Temporal [facility] Body surface 0 0 [place] [facility] Body weight 91 kg 91 kg [place] [facility] [place] Measured [facility] Body height 0 cm 0 cm [place] [facility] Diastolic blood 72 mm[Hg] 72 mm[Hg] eCW3 ([facility]) Systolic blood 118 mm[Hg] 118 mm[Hg] eCW3 ([facility]) Body temperature 97.8 [degF] 97.8 [degF] eCW3 ( [facility]) Heart rate 18 /min 18 /min eCW3 ([facility]) Body mass index 28.59 kg/m2 28.59 kg/m2 eCW3 ([facility] (BMI) [Ratio] Counts include 234 beds at the [facility]) Body weight 205 [lb_av] 205 [lb_av] eCW3 ([facility]) Body height 71 [in_i] 71 [in_i] eCW3 ([facility]) Body height 184.000 cm 184.000 cm [place] [facility] Body weight 91.000 kg 91.000 kg [place] [facility] Measured [facility] Body surface 2.16 2.16 [place] [facility] 91 kg 91 kg [place] [facility] Measured [facility] Body height 184 cm 184 cm [place] [facility] Mean blood 79 mm[Hg] 79 mm[Hg] [place] [facility] pressure - [facility] Diastolic blood 67 mm[Hg] Normal (applies to 67 mm[Hg] [place] [facility] pressure non-numeric - [place] results) [facility] Systolic blood 103 mm[Hg] Normal (applies to 103 mm[Hg] [place] [facility] pressure non-numeric - [place] results) [facility] Respiratory rate 20 br/min Normal (applies to 20 br/min [place] [facility] non-numeric - [place] results) [facility] Peripheral Pulse 86 bpm Normal (applies to 86 bpm [place] [facility] Rate non-numeric - [place] results) [facility] Body temperature 98.3 [degF] 98.3 [degF] [place] [facility] - Temporal - [facility] ID Date Data Source [id number] 06/07/2020 02:21:35 PM EDT [facility] Name Value Range Interpretation Code Description Data Source(s) Body weight Measured 190 lb 190 lb [facility] ID Date Data Source [id number] [facility] Interpretation Code Description Data Source(s) Body weight Measured 190 lb 190 lb [facility] ID Date Data Source [id number] [facility]02[facility]:23[facility] Value Range Interpretation Code Description Data Source(s) Body weight Measured 190 lb 190 lb [facility] Patient Treatment Plan of Care Planned Activity Planned Date Details Description Data Source (s) No Known Medications 04/16/2020 [place] [facility] - 05:27:46 PM EDT [facility] Prednisone 50 MG Oral 12/25/2019 [place] [facility] - Tablet 08:50:00 PM [facility] Zithromax 250 mg oral 12/25/2019 [place] [facility] - tablet 08:50:00 PM [facility] traZODone 12/25/2019 [place] [facility] - 07:44:00 PM EST [facility] 12 HR cetirizine 12/20/2019 eCW3 ([facility] hydrochloride 5 MG / 12:00:00 AM [facility]) Pseudoephedrine Hydrochloride 120 MG Extended Release Oral Tablet Naprosyn 500 MG 12/20/2019 eCW3 ([facility] 12:00:00 AM [facility]) dextromethorphan-guaifenes 08/20/2019 [place] [facility] - in 20 mg-200 mg/20 mL oral 05:09:[address] [facility] Albuterol 0.83 MG/ML 08/13/2019 [place] [facility] - Inhalant Solution 07:10:50 AM EDT [facility] Zithromax 250 mg oral 08/13/2019 [place] [facility] - tablet 05:23:13 AM EDT [facility] dextromethorphan-guaifenes 08/13/2019 [place] [facility] - in 20 mg-200 mg/20 mL oral 05:09:[address] [facility]
--- NOTE | 2020-07-31 23:34 | PDOC ---
History of Present Illness - General Chief Complaint: Weakness Stated Complaint: WEAKNESS/DHYDRATION Time Seen by Provider: 07/31/20 23:15 History Source: Patient - History of Present Illness Initial Comments: 08/01/20 00:02 34-year-old male complaining of dehydration and blood sugar low. Patient reports that he was drinking and smoked a cigarette when symptoms started. Patient is alert awake able to walk 08/01/20 00:26 08/01/20 01:18 Past History - Medical History Allergies/Adverse Reactions: Allergies Allergy/AdvReac Type Severity Reaction Status Date / Time doxycycline AdvReac Severe Swelling Verified 05/31/20 21:53 Home Medications: Ambulatory Orders Amox-Tr/K Cl [Augmentin 875Mg Tablet] 1 tab PO BID #20 tablet 03/07/19 Asthma: Yes CVA: Yes COPD: No Hypercholesterolemia: Yes Psychiatric Problems: Yes (Anxiety) - Psycho-Social/Smoking History Smoking History: Never smoked Have you smoked in the past 12 months: Yes - Substance Abuse Hx (Audit-C & DAST Scrn) How often the patient has a drink containing alcohol: Monthly or less How often the patient has six or more drinks on one occasion: Less than monthly Score: In Men: 4 or > Positive; In Women: 3 or > Positive: 2 Screen Result (Pos requires Nsg. Audit-10AR): Negative In the last yr the pt used illegal drug/Rx for NonMed reason: No Score: Yes response is considered Positive: 0 Screen Result (Positive result requires Nsg. DAST-10): Negative *Physical Exam - Vital Signs Last Vital Signs Temp Pulse Resp BP Pulse Ox 98.4 F 93 H 19 135/85 99 07/31/20 22:37 07/31/20 22:37 07/31/20 22:37 07/31/20 22:37 07/31/20 22:37 - Physical Exam General Appearance: Yes: Appropriately Dressed, Alcohol on Breath. No: Intoxicated Respiratory/Chest: positive: Lungs Clear, Normal Breath Sounds Cardiovascular: positive: Regular Rate Integumentary: positive: Normal Color, Dry, Warm Neurologic: positive: Fully Oriented, Normal Mood/Affect Medical Decision Making - Medical Decision Making 08/01/20 01:18 Alcohol abuse P: Fingerstick within normal limits 08/01/20 01:19 Patient walked out of the ER. Discharge - Discharge Information Problems reviewed: Yes Clinical Impression/Diagnosis: Alcohol abuse Disposition: HOME - Follow up/Referral - Patient Discharge Instructions - Post Discharge Activity
== END 2020-08-01 01:20 | disposition home or self-care (01) ==
LOC: JER 22:33
DX: F10.10 Alcohol abuse, uncomplicated (principal)
CPT/HCPCS: 82962; 99283-25

== ENCOUNTER 2023-10-07 13:37 | Emergency (ER) | payer OTHER ==
[2023-10-07 14:15] VITALS: BP 125/78; PULSE 72; RESP 18; TEMP 98.8; BMI 29.8
[2023-10-07] MEDS ORDERED: ONDANSETRON 4 MG/2 ML VIAL IVPUSH ONE (14:46)
[2023-10-07] MEDS ORDERED: MECLIZINE HCL 25 MG TABLET (FP) PO ONE (14:46)
[2023-10-07] MEDS ORDERED: SODIUM CHLORIDE 1,000 ML IV STA (14:48)
[2023-10-07] MEDS ORDERED: MECLIZINE HCL 25 MG TABLET (FP) ONE (16:09)
[2023-10-07] MEDS ORDERED: ONDANSETRON 4 MG/2 ML VIAL ONE (16:10)
[2023-10-07] MEDS ORDERED: KETOROLAC TROMETHAMINE 30 MG/1 ML VIAL IM ONE (16:31)
[2023-10-07] MEDS ORDERED: KETOROLAC TROMETHAMINE 15 MG/ML VIAL ONE (16:36)
[2023-10-07 16:42] LABS: BASO % 1.2 % (0-2.0); EOS % 2.8 % (0-4.5); HEMOGLOBIN 14.4 GM/dL (11.7-16.9); LYMPH % 50.2 % (8-40); MCHC 32.7 g/dl (32.0-35.9); MEAN CELL VOLUME 82.7 fl (80-96); MEAN PLT VOLUME 6.6 fl (7.5-11.1); NEUT % 38.8 % (42.8-82.8); PLATELET COUNT 329 10^3/uL (134-434); RBC 5.32 M/mm3 (4.00-5.60); RDW 13.7 % (11.9-15.9)
[2023-10-07 16:58] LABS: POTASSIUM 4.2 mmol/L (3.5-5.1)
[2023-10-07 17:00] LABS: CALCIUM 9.7 mg/dL (8.5-10.1)
[2023-10-07 17:01] LABS: BLOOD UREA NITROGEN 13.2 mg/dL (7-18)
[2023-10-07 17:04] LABS: CREATININE 1.1 mg/dL (0.55-1.3)
[2023-10-07] MEDS ORDERED: KETOROLAC TROMETHAMINE 30 MG/1 ML VIAL IVPUSH ONE (17:05)
[2023-10-07 17:06] LABS: BILIRUBIN,TOTAL 0.3 mg/dL (0.2-1); TOT PROT 7.9 g/dl (6.4-8.2)
== END 2023-10-07 18:18 | disposition home or self-care (01) ==
LOC: JER 13:37
PROC: 3E033NZ Introduction of Analgesics, Hypnotics, Sedatives into Peripheral Vein, Percutaneous Approach (ICD-10-PCS; principal; 2023-10-07)
PROC: 3E033GC Introduction of Other Therapeutic Substance into Peripheral Vein, Percutaneous Approach (ICD-10-PCS; 2023-10-07)
PROC: 3E0337Z Introduction of Electrolytic and Water Balance Substance into Peripheral Vein, Percutaneous Approach (ICD-10-PCS; 2023-10-07)
DX: R42 Dizziness and giddiness (principal); R51.9 Headache, unspecified; Z20.822 Contact with and (suspected) exposure to COVID-19
CPT/HCPCS: 0241U-QW; 36415; 70450-TC; 80053; 85025; 99284-25

== ENCOUNTER 2023-10-08 18:27 | Inpatient (IN) | payer OTHER ==
[2023-10-08 18:50] VITALS: BMI 29.8
[2023-10-08] MEDS ORDERED: MECLIZINE HCL 25 MG TABLET (FP) PO ONE (21:11)
[2023-10-08] MEDS ORDERED: MECLIZINE HCL 12.5 MG TABLET ONE (21:25)
[2023-10-08] MEDS ORDERED: MECLIZINE HCL 25 MG TABLET (FP) ONE (21:27)
[2023-10-08 21:28] LABS: EOS % 3.5 % (0-4.5); HEMATOCRIT 42.9 % (35.4-49); HEMOGLOBIN 14.1 GM/dL (11.7-16.9); LYMPH % 38.6 % (8-40); MCH 26.7 pg (25.7-33.7); MCHC 32.7 g/dl (32.0-35.9); MEAN CELL VOLUME 81.4 fl (80-96); MEAN PLT VOLUME 6.8 fl (7.5-11.1); MONO % 5.9 % (3.8-10.2); PLATELET COUNT 298 10^3/uL (134-434); RBC 5.27 M/mm3 (4.00-5.60); RDW 13.6 % (11.9-15.9); WHITE BLOOD COUNT 6.5 K/mm3 (4.0-10.0)
[2023-10-08 21:46] LABS: POTASSIUM 3.7 mmol/L (3.5-5.1)
[2023-10-08 21:47] LABS: INR 0.95 (0.83-1.09)
[2023-10-08 21:48] LABS: CALCIUM 9.4 mg/dL (8.5-10.1)
[2023-10-08 21:49] LABS: ALBUMIN 3.9 g/dl (3.4-5.0); BLOOD UREA NITROGEN 14.8 mg/dL (7-18)
[2023-10-08 21:52] LABS: CREATININE 1.2 mg/dL (0.55-1.3)
[2023-10-08 21:53] LABS: BILIRUBIN,TOTAL 0.2 mg/dL (0.2-1); TOT PROT 7.5 g/dl (6.4-8.2)
[2023-10-09] MEDS ORDERED: LORazepam 1 MG TABLET PO PRN (03:17)
[2023-10-09 03:26] LABS: BASO % 0.9 % (0-2.0); EOS % 3.1 % (0-4.5); HEMATOCRIT 41.2 % (35.4-49); HEMOGLOBIN 13.3 GM/dL (11.7-16.9); LYMPH % 47.7 % (8-40); MCH 26.3 pg (25.7-33.7); MCHC 32.1 g/dl (32.0-35.9); MEAN CELL VOLUME 81.9 fl (80-96); MEAN PLT VOLUME 6.5 fl (7.5-11.1); MONO % 8.8 % (3.8-10.2); NEUT % 39.5 % (42.8-82.8); PLATELET COUNT 282 10^3/uL (134-434); RBC 5.03 M/mm3 (4.00-5.60)
[2023-10-09 03:39] LABS: INR 0.93 (0.83-1.09); PROTHROMBIN TIME (PATIENT) 10.8 SEC (9.7-13.0)
[2023-10-09 03:41] LABS: ACTIVATED PTT 31.3 SECONDS (25.2-36.5)
[2023-10-09 03:44] LABS: POTASSIUM 3.7 mmol/L (3.5-5.1)
[2023-10-09 03:47] LABS: ALBUMIN 3.5 g/dl (3.4-5.0); BLOOD UREA NITROGEN 18.7 mg/dL (7-18)
[2023-10-09 03:50] LABS: CREATININE 1.2 mg/dL (0.55-1.3)
[2023-10-09 03:52] LABS: BILIRUBIN,TOTAL 0.3 mg/dL (0.2-1)
[2023-10-09] MEDS: LORazepam 1 MG TABLET PO SCH ×4 (04:02→10:09)
[2023-10-09 04:07] LABS: TOT PROT 6.8 g/dl (6.4-8.2)
[2023-10-09] MEDS ORDERED: THIAMINE HCL 200 MG/2 ML VIAL IVPB SCH (06:00)
[2023-10-09] MEDS ORDERED: THIAMINE HCL 200 MG/2 ML VIAL ONE ×2 (06:12→06:13)
[2023-10-09] MEDS ORDERED: SODIUM CHLORIDE 1,000 ML IV SCH (06:15)
[2023-10-09 06:41] LABS: HEMATOCRIT 42.1 % (35.4-49); HEMOGLOBIN 13.8 GM/dL (11.7-16.9); MCH 26.9 pg (25.7-33.7); MCHC 32.8 g/dl (32.0-35.9); MEAN PLT VOLUME 7.3 fl (7.5-11.1); PLATELET COUNT 283 10^3/uL (134-434); RBC 5.13 M/mm3 (4.00-5.60); RDW 13.7 % (11.9-15.9); WHITE BLOOD COUNT 5.6 K/mm3 (4.0-10.0)
[2023-10-09 07:03] LABS: POTASSIUM 3.8 mmol/L (3.5-5.1)
[2023-10-09 07:11] LABS: PHOSPHOROUS 4.5 mg/dL (2.5-4.9)
[2023-10-09 07:12] LABS: ALBUMIN 3.6 g/dl (3.4-5.0); BLOOD UREA NITROGEN 16.3 mg/dL (7-18)
[2023-10-09 07:13] LABS: BILIRUBIN,TOTAL 0.3 mg/dL (0.2-1); TOT PROT 6.9 g/dl (6.4-8.2)
[2023-10-09 07:15] LABS: CREATININE 1.3 mg/dL (0.55-1.3)
[2023-10-09 07:16] LABS: CALCIUM 8.5 mg/dL (8.5-10.1); MAGNESIUM 2.3 mg/dL (1.8-2.4)
[2023-10-09 08:22] LABS: METHADONE, UR NEGATIVE (NEGATIVE); URINE BENZODIAZEPINES NEGATIVE (NEGATIVE)
[2023-10-09 08:23] LABS: OPIATES, URI NEGATIVE (NEGATIVE); URINE AMPHETAMINES NEGATIVE (NEGATIVE); URINE BARBITURATES NEGATIVE (NEGATIVE)
[2023-10-09 08:37] LABS: COCAINE, UR POSITIVE (NEGATIVE); PHENCYCLIDINE,URINE POSITIVE (NEGATIVE)
[2023-10-09 08:48] LABS: URINE APPEARANCE CLEAR; URINE BILIRUBIN NEGATIVE (NEGATIVE); URINE COLOR YELLOW; URINE GLUCOSE (UA) NEGATIVE (NEGATIVE); URINE KETONE NEGATIVE (NEGATIVE); URINE LEUK ESTERASE NEGATIVE (NEGATIVE); URINE NITRITE NEGATIVE (NEGATIVE); URINE PROTEIN NEGATIVE (NEGATIVE); URINE UROBILINOGEN 0.2 mg/dL (0.2-1.0)
[2023-10-09] MEDS: INSULIN ASPART SLIDING SCALE (NOVOLOG) 1 VIAL SQ SCH ×2 (09:48→11:43)
[2023-10-09] MEDS ORDERED: ARIPiprazole 5 MG TABLET PO SCH (10:00)
[2023-10-09] MEDS ORDERED: NICOTINE 7 MG/24 HOURS TOPICAL PATCH TD SCH (10:00)
[2023-10-09] MEDS ORDERED: PARoxetine HCL 20 MG TABLET PO SCH (10:00)
[2023-10-09] MEDS ORDERED: FOLIC ACID 1 MG TABLET (FP) PO SCH (10:00)
[2023-10-09] MEDS ORDERED: ENOXAPARIN NA (PORCINE) 40 MG/0.4 ML DISP.SYRIN SQ SCH (10:00)
[2023-10-09] MEDS ORDERED: LORazepam 1 MG TABLET ONE (10:01)
[2023-10-09] MEDS ORDERED: PARoxetine HCL 10 MG TABLET ONE (10:01)
[2023-10-09] MEDS ORDERED: ARIPiprazole 5 MG TABLET ONE (10:01)
[2023-10-09 11:41] VITALS: BP 133/86; PULSE 92; RESP 16; TEMP 98.2
[2023-10-09] MEDS ORDERED: MECLIZINE HCL 25 MG TABLET (FP) PO SCH (12:00)
[2023-10-09] MEDS ORDERED: MECLIZINE HCL 25 MG TABLET (FP) ONE (12:08)
[2023-10-09] MEDS ORDERED: ATORVASTATIN CA 20 MG TABLET (FP) PO SCH (22:00)
[2023-10-09] MEDS ORDERED: MIRTAZAPINE 15 MG TABLET (FP) PO SCH (22:00)
[2023-10-09] MEDS ORDERED: PRAZOSIN HCL 1 MG CAPSULE PO SCH (22:00)
[2023-10-10] MEDS ORDERED: LORazepam 1 MG TABLET PO SCH (05:00)
[2023-10-11] MEDS ORDERED: LORazepam 0.5 MG TABLET PO PRN
[2023-10-11] MEDS ORDERED: LORazepam 0.5 MG TABLET PO SCH (05:00)
[2023-10-12] MEDS ORDERED: LORazepam 0.5 MG TABLET PO ONE (05:00)
== END 2023-10-09 14:00 | disposition home or self-care (01) | DRG 114 ==
LOC: JER 18:27 → JERBED 23:08
PROVIDERS: ADMIT Internal Medicine; ATTEND Internal Medicine
DX: K04.7 Periapical abscess without sinus (principal); F10.239 Alcohol dependence with withdrawal, unspecified; F14.10 Cocaine abuse, uncomplicated; F16.10 Hallucinogen abuse, uncomplicated; R27.0 Ataxia, unspecified; E11.9 Type 2 diabetes mellitus without complications; E78.5 Hyperlipidemia, unspecified; H53.8 Other visual disturbances; F17.210 Nicotine dependence, cigarettes, uncomplicated; Z87.820 Personal history of traumatic brain injury
CPT/HCPCS: 0241U-QW; 36415; 70486-TC; 80053; 80307; 81003; 82962; 83036; 83735; 84100; 84443; 85025; 85027; 85610; 85730; 87086; 93005; 93010; 99285-25